=== PATIENT | female | born 1965 | race Caucasian/White ===

== ENCOUNTER 2018-01-16 12:00 | Day surgery (SDC) | payer OTHER ==
[~2018-01-16 12:00] MED LIST: LORA10 PO; MONT10T PO; POTASSIUM99 M1 PO; TELM40 PO; Xopenex Hfa15 GM; ZENCHENT 0.4 M1 EACH PO
[2018-01-17] MEDS ORDERED: ASPI81CH PO (09:56)
[2018-01-17] MEDS ORDERED: FAMO20 (09:56)
[2018-02-03] MEDS ORDERED: CITRACAL SOFT1 EACH PO (14:09)
[2018-02-03] MEDS ORDERED: VITAMIN B122500 MC1 PO (14:10)
[2018-02-03] MEDS ORDERED: CHOL10002 PO (14:10)
[2018-02-03] MEDS ORDERED: MULTIVITAMIN PO (14:11)
[2018-02-03] MEDS ORDERED: MAGNESIUM PO (14:11)
[2018-02-07] MEDS ORDERED: FAMO20 PO (07:10)
[2018-02-07] MEDS ORDERED: Tylenol325 MG PO (07:11)
[2018-02-07] MEDS ORDERED: TUMS200 MG PO (07:11)
== END 2018-04-07 22:43 | disposition home or self-care (01) ==
LOC: MOI MAM 12:00
DX: C50.811 Malignant neoplasm of overlapping sites of right female breast (principal)
CPT/HCPCS: 19281

== ENCOUNTER → 2018-10-23 | Outpatient (CLI) | payer OTHER ==
[~2018-10-23] MED LIST changes: +ASPI81CH PO; +CHOL10002 PO; +CITRACAL SOFT1 EACH PO; +FAMO20; +FAMO20 PO; +MAGNESIUM PO; +MULTIVITAMIN PO; +TUMS200 MG PO; +Tylenol325 MG PO; +VITAMIN B122500 MC1 PO
== END ==
LOC: PLD 07:41 → LAB SHORT 07:41
DX: L82.1 Other seborrheic keratosis (principal)
CPT/HCPCS: 88305

== ENCOUNTER → 2019-12-28 | Outpatient (CLI) | payer OTHER | LOC: LAB SHORT 16:02 → LAB 16:02 | DX: R10.9 Unspecified abdominal pain (principal) | CPT/HCPCS: 87077; 87086; 87186 ==

== ENCOUNTER 2020-10-02 12:02 | Emergency (ER) | payer OTHER ==
[~2020-10-02] VITALS: Ht 180.3 cm; Wt 102.1 kg
[2020-10-02 12:28] LABS: Source, Urine Clean Catch
[2020-10-02 12:32] LABS: Bilirubin, Urine Neg (Neg); Blood, Urine 1+ (Neg); Glucose Qualitative, Urine Neg (Neg); Ketones, Urine Neg (Neg); Leukocyte Esterase, Urine 3+ (Neg); Nitrite, Urine Neg (Neg); Protein, Urine Neg (Neg); Urobilinogen, Urine NORM (Normal)
[2020-10-02 12:39] LABS: Appearance, Urine Hazy (Clear); Color, Urine Yellow (P-Yellow)
[2020-10-02 12:41] LABS: Bacteria Mod /hpf; Red Blood Cells, Urine 0-2 /hpf (0-2); Squamous Epithelial Cells Many /hpf (Few)
[2020-10-02] MEDS ORDERED: LISI5 (13:17)
[2020-10-02] MEDS ORDERED: TAMO10 PO (13:18)
[2020-10-02] MEDS ORDERED: NITR100CA PO ×2 (14:04→15:52)
== END 2020-10-02 14:08 | disposition home or self-care (01) ==
LOC: ER 12:02
PROVIDERS: Emergency Medicine
DX: N39.0 Urinary tract infection, site not specified (principal)
CPT/HCPCS: 81001; 87086; 99283

== ENCOUNTER 2021-02-14 08:33 | Day surgery (SDC) | payer OTHER ==
[~2021-02-14] VITALS: Ht 180.3 cm; Wt 105.0 kg
[~2021-02-14 08:33] MED LIST changes: +ESCI10 PO; +LISI5; +NITR100CA PO; +TAMO10 PO
--- NOTE | 2021-02-14 09:19 | NUR ---
PT AMBULATES TO [facility] c STEADY GAIT. REPORTS PREP FISNIHED THIS AM c LIQUID STOOL. NPO SINCE 0900 ON 02/13. History, Chart, Medications and Allergies reviewed before start of procedure. Lungs clear T/O to Auscultation. Patient States Post-Procedure ride home has been arranged. + URINE, PREG TEST NEGATIVE.
--- NOTE | 2021-02-14 10:12 | NUR ---
02/14/21 1012 Sanjuanita Ken History, Chart, Medications and Allergies reviewed before start of procedure. Patient confirms NPO status and agrees with scheduled surgery. 3-LEAD EKG REVIEWED WITH PHYSICIAN PRIOR TO START OF PROCEDURE. MONITOR INTACT WITH CONTINUOUS PULSE OXIMETRY AND INTERMITTENT BP. PATIENT DETERMINED TO BE ASA APPROPRIATE FOR PROPOFOL SEDATION PRIOR TO START OF PROCEDURE BY .
--- NOTE | 2021-02-14 11:04 | NUR ---
PT TO STEP, AWAKE AND ALERT. GIVEN PO FLUIDS, TOLERATES s DIFFICULTY. DENIES PAIN OR NAUSEA. GIVEN DC INSTRUCTIONS s QUESTIONS, VERBALIZES AN UNDERSTANDING. IV DC'D, CATH INTACT AND PRESSURE DRESSING APPLIED. DRESSES s DIFFICULTY. OTD IN NAD VIA WC, ESCORTED BY VOLUNTEER TO SAFE RIDE HOME.
== END 2021-02-14 22:47 | disposition home or self-care (01) ==
LOC: ORSCMMR 08:33 → ORD 09:15 → ORSCMMR 22:47
PROVIDERS: Surgery
PROC: 0DJD8ZZ Inspection of Lower Intestinal Tract, Via Natural or Artificial Opening Endoscopic (ICD-10-PCS; principal; 2021-02-14 09:15)
DX: Z12.11 Encounter for screening for malignant neoplasm of colon (principal); Z86.010 Personal history of colon polyps; K21.9 Gastro-esophageal reflux disease without esophagitis; I10 Essential (primary) hypertension; F41.9 Anxiety disorder, unspecified; J45.909 Unspecified asthma, uncomplicated; E66.9 Obesity, unspecified; Z68.32 Body mass index [BMI] 32.0-32.9, adult; Z79.82 Long term (current) use of aspirin; Z79.899 Other long term (current) drug therapy
CPT/HCPCS: J2704; J7120

== ENCOUNTER → 2021-06-20 | Outpatient (CLI) | payer OTHER | END | disposition home or self-care (01) | LOC: LAB SHORT 13:38 | DX: R82.998 Other abnormal findings in urine (principal) | CPT/HCPCS: 87086 ==